=== PATIENT | female | born 1985 ===

== ENCOUNTER 2021-03-11 20:24 | Emergency (ER) | payer SELFPAY ==
[2021-03-11 20:47] VITALS: BP 163/92
== END 2021-03-12 02:30 | disposition left against medical advice (07) ==
LOC: ED 20:24
DX: O26.812 Pregnancy related exhaustion and fatigue, second trimester (principal); R11.11 Vomiting without nausea; Z53.21 Procedure and treatment not carried out due to patient leaving prior to being seen by health care provider

== ENCOUNTER 2021-08-07 21:13 | Outpatient (CLI) | payer MEDICAID ==
[2021-08-07 21:52] VITALS: BP 141/89
[2021-08-07] MEDS ORDERED: BETAMET ACET/BETAMET NA PH 6 MG/ML INJ 5 ML MDV IM ONE (23:15)
== END 2021-08-07 22:54 | disposition home or self-care (01) ==
LOC: TRG 21:13 → APU 21:16 → TRG 22:54
PROVIDERS: ATTEND Obstetrics & Gynecology
DX: O47.03 False labor before 37 completed weeks of gestation, third trimester (principal); O13.3 Gestational [pregnancy-induced] hypertension without significant proteinuria, third trimester; O36.5930 Maternal care for other known or suspected poor fetal growth, third trimester, not applicable or unspecified; Z3A.35 35 weeks gestation of pregnancy
CPT/HCPCS: 96372; J0702

== ENCOUNTER 2021-08-08 21:19 | Outpatient (CLI) | payer MEDICAID ==
[~2021-08-08 21:19] MED LIST: BETAMET ACET/BETAMET NA PH 6 MG/ML INJ 5 ML MDV IM ONE
[2021-08-08 21:47] VITALS: BP 131/76
[2021-08-08] MEDS ORDERED: BETAMET ACET/BETAMET NA PH 6 MG/ML INJ 5 ML MDV IM ONE (22:17)
[2021-08-08] MEDS ORDERED: BETAMET ACET/BETAMET NA PH 6 MG/ML INJ 5 ML MDV IM SCH (23:00)
--- NOTE | 2021-08-09 03:32 | Ultrasound Report ---
US OB BPP wo non-stress INDICATION / CLINICAL INFORMATION: Decreased movement COMPARISON: None available. TECHNIQUE: Using a transcutaneous probe, multiple grayscale, color Doppler, and spectral Doppler imag es of the uterus and fetus were captured and stored. biophysical profile was performed with sco ring of biophysical variables including respiratory motion, motion, posture and ton e, and qualitative amniotic fluid volume. FINDINGS: Single fetus with heart rate of 133 bpm. Each of the biophysical variable score 2 for total of 8 out of possible 8. Amniotic fluid index is 9.6 cm. Clinical estimate gestational age based on ECG of 09/07/2021 is 35 weeks 5 days. IMPRESSION: 1. Normal biophysical profile score 8/8. Signer Name: Ike Tuttle II, MD Signed: 08/09/2021 3:27 AM Workstation Name: [email or web address]
--- NOTE | 2021-08-09 03:36 | Ultrasound Report ---
US OB limited INDICATION / CLINICAL INFORMATION: [place] COMPARISON: None available. TECHNIQUE: Using a transcutaneous probe, multiple grayscale, color Doppler, and spectral Doppler imag es of the uterus and fetus were captured and stored. FINDINGS: Single cephalic fetus heart rate of 133 bpm. Amniotic fluid index is within normal limits measuring 9.6 cm. IMPRESSION: 1. Amniotic fluid index appears within normal limits. Signer Name: Ike Tuttle II, MD Signed: 08/09/2021 3:31 AM Workstation Name: [email or web address]
== END 2021-08-09 01:30 | disposition home or self-care (01) ==
LOC: TRG 21:19 → APU 21:20 → TRG 08-09 01:30 → APU 08-09 03:03
PROVIDERS: ATTEND Obstetrics & Gynecology
DX: O36.8130 Decreased fetal movements, third trimester, not applicable or unspecified (principal); O99.323 Drug use complicating pregnancy, third trimester; F12.90 Cannabis use, unspecified, uncomplicated; O13.3 Gestational [pregnancy-induced] hypertension without significant proteinuria, third trimester; Z3A.35 35 weeks gestation of pregnancy
CPT/HCPCS: 59025; 76815; 76819; 96372; J0702; 64415